=== PATIENT | male | born 1970 | race Caucasian/White ===

== ENCOUNTER → 2024-04-29 06:40 | Outpatient (REF) | payer OTHER, SELFPAY | LOC: MRI 3T 06:40 | PROVIDERS: ATTENDING PHYSICIAN Family Medicine | DX: M72.2 Plantar fascial fibromatosis (principal); M77.32 Calcaneal spur, left foot | CPT/HCPCS: 73718 ==

== ENCOUNTER → 2024-08-19 13:20 | Outpatient (REF) | payer OTHER, SELFPAY | LOC: RCS 13:20 | PROVIDERS: ATTENDING PHYSICIAN Internal Medicine Cardiovascular Disease; FAMILY PHYSICIAN Family Medicine | DX: R06.02 Shortness of breath (principal) | CPT/HCPCS: 93017; 93350 ==